=== PATIENT | male | born 1940 | race Caucasian/White ===

== ENCOUNTER → 2016-07-07 | Outpatient (CLI) | payer MEDICARE, BC ==
[~2016-07-07] MED LIST: ALAVERT10 M1 PO; APRESOLINE PO; ASPIRIN 81M81 MG/TA2 PO; CALAN SR240 MG PO; CALCIUM + D 6001 TA1 PO; CALCIUM600 M2 PO; CARAFATE 1GM1 G PO; COENZYME Q-10100 M1 PO; COLESTID 1GM1 G PO; COZAAR 25MG25 MG/TAB PO; COZAAR 50MG50 MG/TAB PO; DUO-KAPS1 CAP PO; GENTAMICIN180 MG/501 NS; GENTAMICIN180 MG/502 NS; HYTRIN 1MG C1 MG/CAP PO; HYTRIN10 M1 PO; MULTIPLE VITAMI1 TAB PO; NITROSTAT0.4 MG/TAB SL; NORCO 325 MG-51 TAB PO; OMEGA 31000 MG PO; PRILOSEC 20MG20 MG PO; PROBIOTIC-MAJOR PO; PROVENTIL0.09 MG/A1 IH; SINGULAIR 110 MG/TAB PO; SUPER EPA 1201200 MG PO; TYLENOL 325MG325 MG PO; VITAMIN D 400400 IU PO; ZOCOR5 MG PO; ZYRTEC 10MG10 MG PO; [UNRECOGNIZED DRUG - OTHER] PO
== END ==
LOC: COL.RAD 12:28
DX: N28.1 Cyst of kidney, acquired (principal); Z85.51 Personal history of malignant neoplasm of bladder; R39.12 Poor urinary stream

== ENCOUNTER → 2016-12-28 | Outpatient (CLI) | payer MEDICARE, BC | LOC: COL.RAD 07:34 | DX: Z01.812 Encounter for preprocedural laboratory examination (principal); I67.82 Cerebral ischemia | CPT/HCPCS: A9585 ==

== ENCOUNTER 2017-02-12 08:30 | Outpatient (RCR) | payer MEDICARE, BC ==
[2017-03-10] MEDS ORDERED: NORCO 325 MG-51 TAB PO (09:14)
== END 2017-05-09 | disposition still patient (30) ==
LOC: WSST
DX: R13.13 Dysphagia, pharyngeal phase (principal); R47.02 Dysphasia
CPT/HCPCS: G8996-GN; G8997-GN

== ENCOUNTER → 2017-02-12 | Outpatient (CLI) | payer MEDICARE, BC | LOC: COL.RAD 08:30 | DX: R47.02 Dysphasia (principal) | CPT/HCPCS: G8996-GN; G8997-GN; G8998-GN ==

== ENCOUNTER 2017-05-11 18:19 | Emergency (ER) | payer MEDICARE, BC ==
[~2017-05-11] VITALS: Ht 167.6 cm; Wt 68.2 kg
[2017-05-11 18:32] VITALS: TEMP 98.3
[2017-05-11 19:36] VITALS: BP 162/74; PULSE 75
== END 2017-05-11 19:36 | disposition home or self-care (01) ==
LOC: COL.ER 18:19
DX: R09.89 Other specified symptoms and signs involving the circulatory and respiratory systems (principal); E78.5 Hyperlipidemia, unspecified; I10 Essential (primary) hypertension; Z79.82 Long term (current) use of aspirin; I51.9 Heart disease, unspecified

== ENCOUNTER 2017-07-03 17:10 | Emergency (ER) | payer MEDICARE, BC ==
[~2017-07-03] VITALS: Ht 167.6 cm; Wt 68.2 kg
[2017-07-03 17:13] VITALS: TEMP 98.6
[2017-07-03 18:01] LABS: BASO % 0.3 % (0.0-2.0); GRAN # 6.2 (1.4-6.5); GRAN % 86.2 % (42.2-75.2); HEMATOCRIT 37.5 % (42.0-52.0); HEMOGLOBIN 12.6 g/dl (13.5-18.0); LYMPH # 0.4 (1.2-3.4); LYMPH % 5.5 % (20.0-51.0); MEAN CELL VOLUME 94 fl (80.0-100.0); MEAN CORPUSCULAR HEMOGLOBIN 32 pg (27.0-31.0); MEAN CORPUSCULAR HGB CONC 34 g/dl (33.0-37.0); MEAN PLATELET VOLUME 10.7 fl (7.4-10.4); MONO # 0.6 (0.1-0.6); MONO % 7.7 % (1.7-9.3); PLATELET COUNT 102 K/mm3 (130-400); RED BLOOD COUNT 3.99 M/mm3 (4.20-5.60); REDCELL DISTRIBUTION WIDTH-CV 14.5 % (11.5-14.5)
[2017-07-03] MEDS ORDERED: NIZORAL CR 30GM TOP (18:01)
[2017-07-03] MEDS ORDERED: MOBIC15 MG PO (18:01)
[2017-07-03 18:14] LABS: ALBUMIN 3.8 gm/dL (3.5-5.0); BILIRUBIN,TOTAL 0.5 mg/dL (0.0-1.0); CALCIUM 8.7 mg/dL (8.4-10.2); CREATININE, serum 1.09 mg/dL (0.66-1.25); POTASSIUM 4.3 mmol/L (3.4-5.0); TOTAL PROTEIN 6.3 gm/dL (6.4-8.2)
[2017-07-03 18:19] LABS: INFLUENZA A NEGATIVE; INFLUENZA B NEGATIVE
[2017-07-03 18:21] LABS: MUCOUS Present /lpf; PH 6 (5-8); SQUAMOUS EPITHELIAL 0-2 /hpf; URINE APPEARANCE Clear; URINE BACTERIA None Seen /hpf; URINE BILIRUBIN Negative (NEGATIVE); URINE BLOOD Negative (NEGATIVE); URINE COLOR Yellow; URINE GLUCOSE Negative (NEGATIVE); URINE KETONE Negative (NEGATIVE); URINE LEUKOCYTE ESTERASE Negative (NEGATIVE); URINE NITRATE Negative (NEGATIVE); URINE PROTEIN(semi-quant) Negative (NEGATIVE); URINE WBC 0-2 /hpf
[2017-07-03 18:40] LABS: COLLECTION METHOD CLEAN CATCH
[2017-07-03] MEDS ORDERED: ZITHROMAX Z PA250 MG PO (19:09)
[2017-07-03 19:25] VITALS: BP 135/66; PULSE 73
== END 2017-07-03 19:25 | disposition home or self-care (01) ==
LOC: COL.ER 17:10
PROVIDERS: Emergency Medicine
DX: R50.9 Fever, unspecified (principal); Z90.49 Acquired absence of other specified parts of digestive tract; Z98.890 Other specified postprocedural states
CPT/HCPCS: J7030

== ENCOUNTER → 2017-12-17 | Outpatient (CLI) | payer MEDICARE, BC ==
[~2017-12-17] MED LIST changes: +DOXYCYCLINE 10100 MG PO; +MOBIC15 MG PO; +NIZORAL CR 30GM TOP; +ZITHROMAX Z PA250 MG PO
== END ==
LOC: EUO 12-11 14:00
DX: M81.0 Age-related osteoporosis without current pathological fracture (principal)
CPT/HCPCS: J3489

== ENCOUNTER 2018-02-03 18:57 | Emergency (ER) | payer MEDICARE, BC ==
[~2018-02-03] VITALS: Ht 167.6 cm; Wt 68.2 kg
[2018-02-03 19:00] VITALS: BP 161/67; TEMP 98.1
[2018-02-03] MEDS ORDERED: FLOMAX 0.40.4 MG/CAP PO (20:37)
[2018-02-03] MEDS ORDERED: CARDIZEM120 MG PO (20:38)
[2018-02-03] MEDS ORDERED: PROVENTIL0.09 MG/A1 IH (20:39)
[2018-02-03] MEDS ORDERED: FISH OIL 1000MG1 CAP PO (20:42)
[2018-02-03 20:44] VITALS: PULSE 79
== END 2018-02-03 20:45 | disposition home or self-care (01) ==
LOC: COL.ER 18:57
DX: R10.30 Lower abdominal pain, unspecified (principal); Z79.82 Long term (current) use of aspirin; Z98.890 Other specified postprocedural states

== ENCOUNTER 2018-07-17 06:29 | Day surgery (SDC) | payer MEDICARE, BC ==
[~2018-07-17] VITALS: Ht 167.6 cm; Wt 68.7 kg
[2018-07-17] VITALS (7 sets, daily range): BP systolic 110–121; BP diastolic 50–66; PULSE 59–74; TEMP 97.8
[~2018-07-17 06:29] MED LIST changes: +CARDIZEM120 MG PO; +FISH OIL 1000MG1 CAP PO; +FLOMAX 0.40.4 MG/CAP PO
[2018-07-17] MEDS ORDERED: BENTYL 10MG10 MG/CAP PO (07:31)
[2018-07-17] MEDS ORDERED: NIZORAL CR 30GM TOP (07:32)
[2018-07-17] MEDS ORDERED: LEVSIN0.125 M1 PO (07:33)
[2018-07-17] MEDS ORDERED: NORCO 325 MG-51 TAB PO (12:52)
== END 2018-07-17 13:40 | disposition home or self-care (01) ==
LOC: SDCO 06:29
DX: K40.91 Unilateral inguinal hernia, without obstruction or gangrene, recurrent (principal); I10 Essential (primary) hypertension; K21.9 Gastro-esophageal reflux disease without esophagitis; E78.00 Pure hypercholesterolemia, unspecified; I08.0 Rheumatic disorders of both mitral and aortic valves; M81.0 Age-related osteoporosis without current pathological fracture; J45.909 Unspecified asthma, uncomplicated; M19.90 Unspecified osteoarthritis, unspecified site; N40.1 Benign prostatic hyperplasia with lower urinary tract symptoms; R39.15 Urgency of urination; Z79.82 Long term (current) use of aspirin; Z90.49 Acquired absence of other specified parts of digestive tract; Z88.8 Allergy status to other drugs, medicaments and biological substances; Z91.040 Latex allergy status; Z98.52 Vasectomy status; Z85.528 Personal history of other malignant neoplasm of kidney; Z85.828 Personal history of other malignant neoplasm of skin; Z82.3 Family history of stroke; Z82.49 Family history of ischemic heart disease and other diseases of the circulatory system
CPT/HCPCS: C1781; J0690; J1100; J1885; J2250; J2405; J2704; J3010; J7120

== ENCOUNTER 2018-11-16 09:19 | Emergency (ER) | payer MEDICARE, BC ==
[~2018-11-16] VITALS: Ht 167.6 cm; Wt 68.2 kg
[~2018-11-16 09:19] MED LIST changes: +BENTYL 10MG10 MG/CAP PO; +LEVSIN0.125 M1 PO
[2018-11-16 09:26] VITALS: TEMP 96.9
[2018-11-16 10:01] LABS: ALANINE AMINOTRANSFERASE 12 U/L (21-72); ALBUMIN 4.3 gm/dL (3.5-5.0); ALKALINE PHOSPHATASE 70 U/L (50-136); ANION GAP 11 mmol/L (7-16); AST,SGOT 27 U/L (15-37); BASO % 0.3 % (0.0-2.0); BILIRUBIN,TOTAL 0.8 mg/dL (0.0-1.0); BLOOD UREA NITROGEN 18 mg/dL (9-20); CALCIUM 9.3 mg/dL (8.4-10.2); CARBON DIOXIDE 25 mmol/L (22-30); CHLORIDE 108 mmol/L (98-107); CREATININE, serum 1.05 (0.66-1.25); EOS % 0.5 % (0-4.0); GLUCOSE 104 mg/dL (74-106); GRAN # 4.2 (1.4-6.5); GRAN % 68.6 % (42.2-75.2); HEMATOCRIT 40.8 % (42.0-52.0); HEMOGLOBIN 13.9 g/dl (13.5-18.0); LIPASE 109 U/L (23-300); LYMPH # 1.3 (1.2-3.4); LYMPH % 20.6 % (20.0-51.0); MEAN CELL VOLUME 97 fl (80.0-100.0); MEAN CORPUSCULAR HEMOGLOBIN 33 pg (27.0-31.0); MEAN CORPUSCULAR HGB CONC 34 g/dl (33.0-37.0); MEAN PLATELET VOLUME 10.9 fl (7.4-10.4); MONO # 0.6 (0.1-0.6); MONO % 9.7 % (1.7-9.3); PLATELET COUNT 133 K/mm3 (130-400); POTASSIUM 4.4 mmol/L (3.4-5.0); RED BLOOD COUNT 4.23 M/mm3 (4.20-5.60); REDCELL DISTRIBUTION WIDTH-CV 13.2 % (11.5-14.5); SODIUM 144 mmol/L (137-145); TOTAL PROTEIN 7.2 gm/dL (6.4-8.2)
[2018-11-16 10:02] LABS: PROTHROMBIN TIME 12.2 SECONDS (9.7-12.8)
[2018-11-16 10:19] LABS: TROPONIN-I < 0.012 ng/mL (0.000-0.035)
[2018-11-16 13:35] VITALS: BP 144/72; PULSE 63
== END 2018-11-16 13:36 | disposition home or self-care (01) ==
LOC: COL.ER 09:19
PROVIDERS: Emergency Medicine
DX: R07.89 Other chest pain (principal); Z79.82 Long term (current) use of aspirin; Z90.49 Acquired absence of other specified parts of digestive tract
CPT/HCPCS: J7030

== ENCOUNTER 2019-01-28 13:44 | Outpatient (CLI) | payer MEDICARE, BC ==
[~2019-01-28] VITALS: Ht 167.6 cm; Wt 70.1 kg
[2019-01-28 14:05] VITALS: BP 137/57; PULSE 56; TEMP 97.9
[2019-01-28] MEDS ORDERED: COZAAR 25MG25 MG/TAB PO (14:14)
[2019-01-28] MEDS ORDERED: CARDIZEM120 MG PO (14:17)
[2019-01-28] MEDS ORDERED: RECLAST5 MG/100 M IV (14:26)
[2019-01-28] MEDS ORDERED: [UNRECOGNIZED DRUG - OTHER] TOP (14:28)
== END 2019-01-28 15:33 | disposition home or self-care (01) ==
LOC: EUO 13:44
DX: M81.0 Age-related osteoporosis without current pathological fracture (principal)
CPT/HCPCS: J3489

== ENCOUNTER → 2019-04-18 | Outpatient (CLI) | payer MEDICARE, BC ==
[~2019-04-18] MED LIST changes: +RECLAST5 MG/100 M IV; +[UNRECOGNIZED DRUG - OTHER] TOP
== END ==
LOC: COL.RAD 14:00
DX: Z01.818 Encounter for other preprocedural examination (principal); K44.9 Diaphragmatic hernia without obstruction or gangrene; Z90.49 Acquired absence of other specified parts of digestive tract; N20.0 Calculus of kidney; I25.10 Atherosclerotic heart disease of native coronary artery without angina pectoris

== ENCOUNTER 2019-06-10 06:10 | Day surgery (SDC) | payer MEDICARE, BC ==
[~2019-06-10] VITALS: Ht 167.6 cm; Wt 67.8 kg
[2019-06-10] VITALS (13 sets, daily range): BP systolic 107–148; BP diastolic 58–77; PULSE 40–86; TEMP 97.7
[~2019-06-10 06:10] MED LIST changes: -ASPIRIN 81M81 MG/TA2 PO; +ASPIRIN E.C. 8181 MG PO; +CALCIUM CITRATE1 TA1 PO; -CALCIUM600 M2 PO; +MULTIPLE VITAMI1 TA5 PO; -MULTIPLE VITAMI1 TAB PO
[2019-06-10 07:12] LABS: HEMATOCRIT 40.9 % (42.0-52.0); HEMOGLOBIN 13.9 g/dl (13.5-18.0); MEAN CELL VOLUME 97 fl (80.0-100.0); MEAN CORPUSCULAR HEMOGLOBIN 33 pg (27.0-31.0); MEAN CORPUSCULAR HGB CONC 34 g/dl (33.0-37.0); PLATELET COUNT 128 K/mm3 (130-400); RED BLOOD COUNT 4.21 M/mm3 (4.20-5.60); REDCELL DISTRIBUTION WIDTH-CV 13.2 % (11.5-14.5)
[2019-06-10 07:19] LABS: CALCIUM 9.4 mg/dL (8.4-10.2); CREATININE, serum 1.18 (0.66-1.25); POTASSIUM 4.2 mmol/L (3.4-5.0)
[2019-06-10 07:20] LABS: PARTIAL THROMBOPLASTIN TIME 30.9 SECONDS (26.0-37.0)
--- NOTE | 2019-06-10 08:59 | NUR ---
SEE MERGE FOR MEDICATION ADMINISTRATION TIMES AND INTRA AND POST SEDATION ASSESSMENTS.
--- NOTE | 2019-06-10 10:23 | NUR ---
PT back from [facility], bs report from A[facility] WHITE. pt is awake and alert, p,w,d, rt radial access with TR band, 12 cc air is instilled per report. there is a small amt blood visible underneath band at edges, and small bruise proximal to puncture site underneath air pillow.. no active bleeding, no hematoma. wctm. wrist splint in place.
--- NOTE | 2019-06-10 12:00 | NUR ---
REMOVED 2 CC AIR FROM BALLOON, SHORTLY AFTER NOTED BLEEDING AT SITE, 2CC REINSTILLED WITH HEMOSTASIS. PLAN TO MONITOR X 1 HOUR, THEN CONTINUE DEFLATION OF BALLOON. CMS REMAINS INTACT.
--- NOTE | 2019-06-10 14:20 | NUR ---
the remainder of air was removed from balloon, site looked good, TR band removed, then slow expansion of bruise to hematoma was noted, direct pressure was applied for 15 minutes, sleep lab technician rn was consulted, Noris russ and Marcia WHITE from sleep lab technician came down to evaluate, pressure was held intermittently for almost 20 minutes after which bleeding appeared to have ceased. wctm.
--- NOTE | 2019-06-10 15:30 | NUR ---
Pt is ready for discharge. rt radial site looks good with some bruising and mild swelling at site, but no bleeding or hematoma formation . Site is covered with a bandaid, and site has been evaluated by senior laboratory technician RN x 3 as an extra precaution prior to pt's discharge. Pt has been ambulatory to restroom with no problem, dc instructions have been reviewed, written instructions regarding cath discharge, site care, activity were reviewed and sent with pt. Pt also received instructions r/t moderate sedation and TED. Joao from senior laboratory technician made cds of ted and cath for pt prior to their departure. pt's iv was dc'd with cath intact, dressing was applied. pt was escorted to exit via wheelchair.
== END 2019-06-10 17:05 | disposition home or self-care (01) ==
LOC: COL.CAR 06:10
PROVIDERS: Internal Medicine Cardiovascular Disease
DX: I08.0 Rheumatic disorders of both mitral and aortic valves (principal); R01.1 Cardiac murmur, unspecified; R07.9 Chest pain, unspecified; I10 Essential (primary) hypertension; K21.9 Gastro-esophageal reflux disease without esophagitis; Z91.040 Latex allergy status; E78.5 Hyperlipidemia, unspecified
CPT/HCPCS: C1769; J1644; J2250; J2704; J3010; Q9967

== ENCOUNTER → 2019-12-22 | Outpatient (CLI) | payer MEDICARE, BC | LOC: COL.LAB 10:22 | DX: Z01.810 Encounter for preprocedural cardiovascular examination (principal); I34.0 Nonrheumatic mitral (valve) insufficiency; Z20.828 Contact with and (suspected) exposure to other viral communicable diseases ==

== ENCOUNTER 2020-03-24 09:32 | Outpatient (CLI) | payer MEDICARE, BC ==
[~2020-03-24] VITALS: Ht 167.6 cm; Wt 69.0 kg
[2020-03-24 10:00] VITALS: BP 131/80; PULSE 61; TEMP 98
[2020-03-24] MEDS ORDERED: PROLIA60 MG/ML SQ (14:10)
[2020-03-24] MEDS ORDERED: TOPROL XL 25MG25 MG PO (14:15)
== END 2020-03-24 12:14 | disposition home or self-care (01) ==
LOC: EUO 09:32
DX: M81.0 Age-related osteoporosis without current pathological fracture (principal)
CPT/HCPCS: J0897

== ENCOUNTER 2020-09-24 13:23 | Outpatient (CLI) | payer MEDICARE, BC ==
[~2020-09-24] VITALS: Ht 167.6 cm; Wt 71.0 kg
[~2020-09-24 13:23] MED LIST changes: -CALCIUM CITRATE1 TA1 PO; +PROLIA60 MG/ML SQ; +TOPROL XL 25MG25 MG PO; +UPCAL D 2500 MG1 POW PO
[2020-09-24 13:59] VITALS: BP 152/81; PULSE 57; TEMP 98.2
== END 2020-09-24 14:41 | disposition home or self-care (01) ==
LOC: EUO 13:23
DX: M81.0 Age-related osteoporosis without current pathological fracture (principal)
CPT/HCPCS: J0897

== ENCOUNTER 2020-10-08 09:45 | Observation (INO) | payer MEDICARE, BC ==
[~2020-10-08] VITALS: Ht 167.6 cm; Wt 69.1 kg
[2020-10-08 10:29] LABS: BASO % 0.3 % (0.0-2.0); EOS # 0.1 (0.0-0.7); EOS % 0.7 % (0-4.0); GRAN # 5.1 (1.4-6.5); GRAN % 73.1 % (42.2-75.2); HEMATOCRIT 39.9 % (42.0-52.0); HEMOGLOBIN 13.4 g/dl (13.5-18.0); LYMPH # 1.1 (1.2-3.4); LYMPH % 15.7 % (20.0-51.0); MEAN CELL VOLUME 96 fl (80.0-100.0); MEAN CORPUSCULAR HEMOGLOBIN 32 pg (27.0-31.0); MEAN CORPUSCULAR HGB CONC 34 g/dl (33.0-37.0); MONO # 0.7 (0.1-0.6); MONO % 9.9 % (1.7-9.3); PLATELET COUNT 126 K/mm3 (130-400); RED BLOOD COUNT 4.17 M/mm3 (4.20-5.60); REDCELL DISTRIBUTION WIDTH-CV 13.9 % (11.5-14.5)
[2020-10-08 10:32] LABS: INR 1.1 (0.8-3.0); PROTHROMBIN TIME 12.5 SECONDS (9.7-12.8)
[2020-10-08 10:38] LABS: ALANINE AMINOTRANSFERASE 19 U/L (4-49); ALBUMIN 4.1 gm/dL (3.5-5.0); ALKALINE PHOSPHATASE 64 U/L (50-136); ANION GAP 7 mmol/L (7-16); AST,SGOT 24 U/L (15-37); BILIRUBIN,TOTAL 0.6 mg/dL (0.0-1.0); BLOOD UREA NITROGEN 21 mg/dL (9-20); CALCIUM 9.1 mg/dL (8.4-10.2); CARBON DIOXIDE 27 mmol/L (22-30); CHLORIDE 103 mmol/L (98-107); CREATININE, serum 1.19 (0.66-1.25); GLUCOSE 97 mg/dL (74-106); POTASSIUM 4.7 mmol/L (3.4-5.0); SODIUM 137 mmol/L (137-145); TOTAL PROTEIN 6.9 gm/dL (6.4-8.2)
[2020-10-08 10:54] LABS: TROPONIN-I < 0.012 ng/mL (0.000-0.035)
--- NOTE | 2020-10-08 12:53 | NUR ---
Pt arrived to medical unit room 308 at this time from ED via wheelchair.
--- NOTE | 2020-10-08 14:30 | NUR ---
Admission assessment and med rec complete. Pt denies dizziness/SOA/chest pain at this time. Call light in reach.
[2020-10-08 16:51] VITALS: BP 157/59; PULSE 63; TEMP 97.9
[2020-10-08 17:16] VITALS: BP 160/68; PULSE 58
[2020-10-08 17:25] VITALS: BP 165/58; PULSE 58
[2020-10-08 17:29] VITALS: BP 152/71; PULSE 75
[2020-10-08 19:33] VITALS: BP 169/64; PULSE 62; TEMP 97.6
--- NOTE | 2020-10-08 20:00 | NUR ---
Initial shift assessment done- denies pain. Tele on, SR 60,s,, family in room, getting ready to leave for the night--no requests from patient, will have bed alarm to remind patient to call for assistance-- is steady on feet-walking around the room now but states is dizzy at times.
[2020-10-09 00:15] VITALS: BP 146/70; PULSE 68; TEMP 97.6
[2020-10-09 04:19] VITALS: BP 147/71; PULSE 74; TEMP 98.2
--- NOTE | 2020-10-09 05:39 | NUR ---
Quiet night- VSS, Up to bathroom with assist 3-4 times during the night- voiding well, tele on-HR SR 50-60,s most of the night
[2020-10-09 07:37] VITALS: BP 126/62; PULSE 80; TEMP 97.5
--- NOTE | 2020-10-09 08:25 | NUR ---
Shift assessment complete. Sitting up at window bench eating breakfast, at bedside. Reports dizziness that comes and goes when up walking around, encouraged to call before ambulating. A&Ox4. Heart RRR. Lungs CTA. Denies pain. Call light in reach.
[2020-10-09 11:18] VITALS: BP 135/77; PULSE 72; TEMP 97.7
[2020-10-09] MEDS ORDERED: NORVASC 5MG5 MG/TAB PO (13:32)
--- NOTE | 2020-10-09 13:51 | NUR ---
Plan is to return home with [facility] for care supports. SW met with patient and in room. Patient reports that he resides locally with his . PCP is Dr. Jordy Cesar and has other specialist Dr. Jennie Rose and uses [facility] or [facility] for [facility]. Patient indicated that he uses a cane for mobility. Denies having any other DME use at this time. Patient declined home health and reports that spouse is of great support. Patient indicated that he is ready to go home. Patient reports that he is able to transport himself but will take him home. Denies any care concerns. Patient was educated on services. NF.
--- NOTE | 2020-10-09 15:00 | NUR ---
Discharge teaching discussed w/pt and , all questions answered. Paperwork placed w/pt belongings. Left AC IV removed, tip intact. Walked pt out accompanied by to ED entrance.
== END 2020-10-09 15:00 | disposition home or self-care (01) ==
LOC: COL.ER 09:45 → MEDICAL 11:05
PROVIDERS: Physician Assistant; ADMIT Internal Medicine
DX: R55 Syncope and collapse (principal); G20 Parkinson's disease; I10 Essential (primary) hypertension; I47.1 Supraventricular tachycardia; I34.0 Nonrheumatic mitral (valve) insufficiency; K21.9 Gastro-esophageal reflux disease without esophagitis; E78.5 Hyperlipidemia, unspecified; N40.0 Benign prostatic hyperplasia without lower urinary tract symptoms; Z91.040 Latex allergy status; Z79.899 Other long term (current) drug therapy; Z79.82 Long term (current) use of aspirin; Z85.51 Personal history of malignant neoplasm of bladder; Z85.828 Personal history of other malignant neoplasm of skin; Z87.891 Personal history of nicotine dependence
CPT/HCPCS: 99239; G0378; J1650; J7030

== ENCOUNTER 2021-04-08 12:53 | Outpatient (CLI) | payer MEDICARE, BC ==
[~2021-04-08 12:53] MED LIST changes: +NORVASC 5MG5 MG/TAB PO
[2021-04-08 13:40] VITALS: BP 148/73; PULSE 62; TEMP 97.6
== END 2021-04-08 14:28 | disposition home or self-care (01) ==
LOC: EUO 12:53
DX: M81.0 Age-related osteoporosis without current pathological fracture (principal)
CPT/HCPCS: J0897

== ENCOUNTER → 2022-01-11 | Outpatient (CLI) | payer MEDICARE, BC | LOC: COL.CARD 12:34 | DX: R29.6 Repeated falls (principal) ==

== ENCOUNTER → 2023-04-03 | Outpatient (CLI) | payer MEDICARE, BC ==
[~2023-04-03] MED LIST changes: +ARICEPT10 MG PO; +CALCIUM CITRATE1 TA7 PO; +LEVAQUIN 5500 MG/TA1 PO; +MELATIN 3 MG-11 TAB PO; +PROBIOTIC ACID1 EAC3 PO; +SINEMET 25/101 UDTAB PO
== END ==
LOC: COL.RAD 03-30 08:30
DX: G90.3 Multi-system degeneration of the autonomic nervous system (principal); R13.10 Dysphagia, unspecified; G20.A1 Parkinson's disease without dyskinesia, without mention of fluctuations

== ENCOUNTER → 2023-04-03 | Outpatient (RCR) | payer MEDICARE, BC | END | disposition still patient (30) | LOC: WSST | DX: R13.10 Dysphagia, unspecified (principal); G20.A1 Parkinson's disease without dyskinesia, without mention of fluctuations; G90.3 Multi-system degeneration of the autonomic nervous system ==

== ENCOUNTER 2024-01-30 12:45 | Outpatient (RCR) | payer MEDICARE, BC ==
[~2024-01-30 12:45] MED LIST changes: +CALCIUM CITRAT950 MG PO; -UPCAL D 2500 MG1 POW PO
== END 2024-02-02 | disposition home or self-care (01) ==
LOC: WSST
DX: G31.84 Mild cognitive impairment of uncertain or unknown etiology (principal)

== ENCOUNTER 2024-02-26 12:45 | Outpatient (RCR) | payer MEDICARE, BC | END 2024-03-03 | disposition home or self-care (01) | LOC: WSST | DX: R48.9 Unspecified symbolic dysfunctions (principal); G31.84 Mild cognitive impairment of uncertain or unknown etiology ==